=== PATIENT | male | born 1950 | race Caucasian/White ===

== ENCOUNTER → 2021-02-22 | Outpatient (CLI) | payer MEDICARE ==
[~2021-02-22] MED LIST: AMIODARONE HCL200 MG PO; ASPIR-TRIN325 MG PO; ASPIRIN CHEWABL81 MG PO; CARDIZEM CD180 MG PO; CARDIZEM CD360 MG PO; DIGOX250 MCG PO; DOCUSATE SODIU250 MG PO; DOXYCYCLINE HY100 MG PO; DULERA 100 MCG8.8 GM INH; ELIQUIS5 MG PO; FUROSEMIDE40 MG PO; GLUCOPHAGE 850850 MG PO; GLUCOPHAGE850 MG PO; GLUCOTROL5 MG PO; LISINOPRIL2.5 MG PO; LOPRESSOR50 MG PO; NEURONTIN400 MG PO; OMEPRAZOLE20 MG PO; OXYGEN; PLAVIX 75 MG TA75 MG PO; TOPROL XL100 MG PO; TRAZODONE HCL100 MG PO; TRAZODONE HCL300 MG PO; VALIUM 5 MG TAB5 MG PO; VIBRAMYCIN100 MG PO
== END ==
LOC: US 09:00
DX: Z13.6 Encounter for screening for cardiovascular disorders (principal); I10 Essential (primary) hypertension; K21.9 Gastro-esophageal reflux disease without esophagitis; F33.9 Major depressive disorder, recurrent, unspecified; E66.9 Obesity, unspecified; E11.9 Type 2 diabetes mellitus without complications; I48.91 Unspecified atrial fibrillation; I25.10 Atherosclerotic heart disease of native coronary artery without angina pectoris; R94.5 Abnormal results of liver function studies
CPT/HCPCS: 76706

== ENCOUNTER → 2021-04-13 | Outpatient (CLI) | payer MEDICARE | LOC: HEART 5 03-22 15:30 | DX: I48.91 Unspecified atrial fibrillation (principal); I25.10 Atherosclerotic heart disease of native coronary artery without angina pectoris; I08.1 Rheumatic disorders of both mitral and tricuspid valves; I50.9 Heart failure, unspecified; I27.20 Pulmonary hypertension, unspecified | CPT/HCPCS: ECHO; 93306 ==

== ENCOUNTER → 2022-04-25 | Day surgery (SDC) | payer MEDICARE ==
[~2022-04-25] MED LIST changes: +DIGOX125 MCG PO; +FISH OIL; +GABAPENTIN800 MG PO; +GERI-KOT8.6 MG PO; +INSULIN GL100 UNIT/3 SQ; +LEVOTHYROXINE125 MC1 PO; +LIPITOR80 MG PO; +MINIPRESS2 MG PO; +VITAMIN D325 MC6 PO
== END | disposition home or self-care (01) ==
LOC: OR 07:25
DX: K59.00 Constipation, unspecified (principal); R19.7 Diarrhea, unspecified; D12.3 Benign neoplasm of transverse colon; K64.1 Second degree hemorrhoids; K57.30 Diverticulosis of large intestine without perforation or abscess without bleeding; E66.01 Morbid (severe) obesity due to excess calories; I48.91 Unspecified atrial fibrillation; E11.9 Type 2 diabetes mellitus without complications; I25.10 Atherosclerotic heart disease of native coronary artery without angina pectoris; I11.0 Hypertensive heart disease with heart failure; I50.9 Heart failure, unspecified; Z72.0 Tobacco use; Z79.01 Long term (current) use of anticoagulants; Z68.41 Body mass index [BMI] 40.0-44.9, adult
CPT/HCPCS: 82962; J2704; J7040